=== PATIENT | female | born 1965 | race Hispanic/Latino ===

== ENCOUNTER 2017-10-29 08:49 | Day surgery (SDC) | payer BC ==
[2017-10-29] MEDS ORDERED: Lactated Ringer's 500 ML IV ONE (10:02)
[2017-10-29] MEDS ORDERED: Propofol 10 mg/ml Inj (20 ML) ONE (12:47)
--- NOTE | 2017-10-29 12:56 | CP.SDSHP ---
Same Day Surgery H & P - History Proposed Procedure: colonoscopy Pre-Op Diagnosis: colon cancer screening - Previous Medical/Surgical History Cardiac: Hypertension - Allergies Allergies: Allergies No Known Allergies Allergy (Verified 10/29/17 10:10) - Physical Exam General Appearance: oriented, no acute distress Vital Signs: Vital Signs 10/29/17 10:22 Temperature 97.7 F Pulse Rate 57 L Respiratory 10 L Rate Blood Pressure 122/75 O2 Sat by Pulse 98 Oximetry Mental Status: Alert & Oriented x3 Neuro: WNL Heart: WNL Lungs: WNL GI: WNL - Impression Impression: colon cancer screening Pt. Evaluated Today:Candidate for Anesthesia & Procedure: Yes - Date & Time Date: 10/29/17 Time: 11:00 Short Stay Discharge - Short Stay Discharge Admitting Diagnosis/Reason for Visit: COLON CA SCREENING Disposition: HOME/ ROUTINE
[2017-10-29] MEDS ORDERED: Midazolam 2 MG/2 ML VIAL ONE (12:57)
[2017-10-29 13:15] VITALS: TEMP 97
[2017-10-29 13:29] VITALS: BP 113/54; PULSE 88; RESP 14; O2SAT 99
== END 2017-10-29 14:04 | disposition home or self-care (01) ==
LOC: H.ENDO 08:49
PROVIDERS: ATTEND Internal Medicine Gastroenterology
DX: Z12.11 Encounter for screening for malignant neoplasm of colon (principal); K64.8 Other hemorrhoids; I10 Essential (primary) hypertension; E03.9 Hypothyroidism, unspecified
CPT/HCPCS: 45378; J2001; J2250; J2704; J7120